=== PATIENT | male | born 1965 | race Asian ===

== ENCOUNTER 2016-10-03 22:29 | Emergency (ER) | payer BC ==
[~2016-10-03] VITALS: Ht 170.2 cm; Wt 73.5 kg
[2016-10-03 23:01] VITALS: BP_SYST 123
--- NOTE | 2016-10-04 00:17 | NUR ---
Patient to ER bed 1 to gown for evaluation. Side rails up. Report given to PAOLO OBRIEN.
--- NOTE | 2016-10-04 00:20 | NUR ---
Pt states that he has been having dysuria with fever since yesterday. Will continue to monitor. No other injuries or complaints mentioned/noted. No distress noted.
[2016-10-04 00:36] LABS: BILIRUBIN,URINE NEGATIVE (NEGATIVE); CLARITY/URINE HAZY (CLEAR); COLOR,URINE YELLOW (YELLOW); GLUCOSE,URINE 3+ (NEGATIVE); KETONES,URINE NEGATIVE (NEGATIVE); LEUKOCYTE ESTERASE ,URINE TRACE (NEGATIVE); NITRITE, URINE POSITIVE (NEGATIVE); PH,URINE 6.5 (5.0-8.0); PROTEIN URINE NEGATIVE (NEGATIVE); UROBILINOGEN,URINE 0.2 (0.2-1.0)
[2016-10-04 00:37] LABS: BLOOD, URINE TRACE (NEGATIVE)
--- NOTE | 2016-10-04 00:40 | NUR ---
SKIP Johnson at bedside examining patient.
[2016-10-04 00:41] LABS: BACTERIA,URINE MODERATE /HPF (None Seen); RBC,URINE 0-3 /HPF (0-3)
[2016-10-04] MEDS ORDERED: TAMSULOSIN HCL 0.4 MG CAP PO ONE (01:00)
[2016-10-04] MEDS ORDERED: CEPHALEXIN 500 MG CAPSULE PO ONE (01:00)
[2016-10-04 01:37] VITALS: BP_SYST 123
[2016-10-04] MEDS ORDERED: TAMSULOSIN HCL 0.4 MG CAP ONE (01:37)
--- NOTE | 2016-10-04 01:37 | NUR ---
Patient given written and verbal discharge instructions and verbalizes understanding. ER MD discussed with patient the results and treatment provided. Patient in stable condition. ID arm band removed. Rx of Keflex and Flomax given. Patient educated on pain management and to follow up with PMD. Pain Scale 0/10. Opportunity for questions provided and answered. No adverse reactions noted.
== END 2016-10-04 01:37 | disposition home or self-care (01) ==
LOC: SED 22:29
DX: N39.0 Urinary tract infection, site not specified (principal); I10 Essential (primary) hypertension
CPT/HCPCS: 81000-TC; 87086; 87186-TC; 99284